=== PATIENT | female | born 1955 | race Caucasian/White ===

== ENCOUNTER 2023-08-17 18:36 | Outpatient (CLI) | payer MEDICARE, OTHER | END 2023-08-17 23:59 | disposition short-term general hospital (02) | LOC: EMS 18:36 | DX: S89.91XA Unspecified injury of right lower leg, initial encounter (principal); W01.0XXA Fall on same level from slipping, tripping and stumbling without subsequent striking against object, initial encounter; Y93.01 Activity, walking, marching and hiking; Y92.000 Kitchen of unspecified non-institutional (private) residence as the place of occurrence of the external cause | CPT/HCPCS: A0425; A0427 ==

== ENCOUNTER 2023-09-03 17:45 | Emergency (ER) | payer MEDICARE, OTHER ==
[2023-09-03 18:15] VITALS: BP 173/75; O2SAT 99
--- NOTE | 2023-09-03 19:10 | ED Physician Documentation ---
History of Present Illness - Stated complaint Stated Complaint: GI - Chief complaint Chief Complaint: General - History obtained from History obtained from: Patient - Additonal information Additional information: Had a recent leg surgery and was on opioid medications. Has not had a bowel movement in 5 days. Went to the walk-in clinic and there was a concern appropriately for fecal impaction and she was referred here. On my evaluation she had had 2 bowel movements in the bathroom in the lobby and was feeling much better. PD PAST MEDICAL HISTORY - Past Medical History Past Medical History: No - Past Surgical History Past Surgical History: Yes Ortho: Other - Allergies Allergies/Adverse Reactions: Allergies Allergy/AdvReac Type Severity Reaction Status Date / Time No Known Drug Allergies Allergy Verified 09/03/23 18:11 - Social History Does the pt smoke?: No Smoking Status: Never smoker PD ED PE NORMAL - Vitals Vital signs reviewed: Yes - General General: Alert and oriented X 3, No acute distress - Abdomen Abdomen: Normal bowel sounds, Soft, Non tender - Rectal Rectal: Other (no stool, purvi mai rn) Results - Vitals Vitals: Vital Signs - 24 hr 09/03/23 18:08 Temperature 36.4 C L Heart Rate 97 Respiratory 20 Rate Blood Pressure 173/75 H O2 Saturation 99 Oxygen O2 Source Room air PD Medical Decision Making - ED course ED course: 68-year-old woman had symptoms of fecal impaction but cleared in the waiting room and subsequently a rectal examination was negative here and she was already feeling much better. Departure - Departure Disposition: 01 Home, Self Care Clinical Impression: Fecal impaction Condition: Good Record reviewed to determine appropriate education?: Yes Instructions: ED Impaction Fecal Treated Forms: PCP List
== END 2023-09-03 19:46 | disposition home or self-care (01) ==
LOC: ED 17:45
DX: K56.41 Fecal impaction (principal)
CPT/HCPCS: 99281; 99282